=== PATIENT | male | born 1935 | race African-American/Black ===

== ENCOUNTER 2016-09-08 15:02 | Emergency (ER) ==
[2016-09-08 15:42] LABS: URINE CULTURE PL NEEDED? NO; URINE SOURCE CLEAN CATCH
[2016-09-08 15:48] LABS: BILIRUBIN URINE NEGATIVE (NEGATIVE); BLOOD URINE NEGATIVE (NEGATIVE); CLARITY SL. CLOUDY (CLEAR); COLOR YELLOW; GLUCOSE URINE NEGATIVE (NEGATIVE); LEUKOCYTES URINE NEGATIVE (NEGATIVE); NITRITE URINE NEGATIVE (NEGATIVE); PROTEIN URINE NEGATIVE (NEGATIVE); UROBILINOGEN URINE NORMAL
[2016-09-08 16:40] LABS: URINE RBC <10 /HPF (<10); URINE WBC <10 /HPF (<10)
[2016-09-08 17:43] VITALS: BP 198/96
[2016-09-08] MEDS ORDERED: NORFLEX IM ONE (18:59)
[2016-09-08] MEDS ORDERED: TORADOL IM ONE (18:59)
--- NOTE | 2016-09-08 19:05 | PROVIDER DOCUMENTATION ---
HPI-Musculoskeletal Pain/Inj - GENERAL Chief Complaint: Back Pain Stated Complaint: FLANK PAIN Time Seen by Provider: 09/08/16 18:51 Source: patient - HX OF PRESENT ILLNESS-MUSKULOSKELTAL Nature of Presenting Problem: 81 YOM PRESENTS TO ED WITH C/O PT STATES HE HAD PULLED HIS BACK SEVERAL YEARS AGO AND NOW FROM TIME TO TIME HE HAS RECURRENT. PT STATES LEFT LOWER BACK TENDERNESS WITH SHOOTING PAINS DOWN LEFT LEG. Quality of Pain: reports: sharp Severity in ED: mild Onset/Duration: 3 days ago Timing: still present Modifying Factors: improves with: nothing Any recent injury?: No Locality of Occurance: Home Similar Symptoms Previously?: No Recently seen or treated by another doctor?: No - FALL INJURY Location of Pain/Injury: reports: back (LEFT LOWER) Pain Radiation: reports: legs (upper) (LT LEG) Review of Systems - Adult - REVIEW OF SYSTEMS - ADULT Constitutional: denies: chills, fever Eyes: reports: no symptoms reported Ears, Nose, Mouth & Throat: reports: no symptoms reported Cardiovascular: denies: chest pain, palpitations, syncope Respiratory: denies: cough, shortness of breath, wheezing Gastrointestinal: denies: abdominal pain, diarrhea, nausea, vomiting Genitourinary: reports: no symptoms reported Musculoskeletal: reports: back pain (LT LOWER). denies: neck pain Integumentary: reports: no symptoms reported Neurological: denies: dizziness/vertigo, headache/migraines, syncope Psychiatric: reports: no symptoms reported Endocrine: reports: no symptoms reported Hematologic/Lymphatic: reports: no symptoms reported Allergic/Immunologic: reports: no symptoms reported All Other Systems: Reviewed and Negative Past History - Adult - PAST MEDICAL HISTORY-ADULT Review of Records: reports: Nursing Assessment Review, Medications Reviewed Cardiovascular: reports: HTN Endocrine/Immune: reports: Diabetes - PRIOR SURGERIES/PROCEDURES Surgical/Procedure History: reports: hernia repair - IMMUNIZATION STATUS Childhood Immunizations: See Nurse Assessment Flu Vaccine: See Nurse Assessment - SOCIAL HISTORY Smoking: denies Substance Use: denies Alcohol Use Frequency: never Living Situation: family Physical Exam-Injury Related - Physical Exam-Injury Related General Appearance: alert, moderate distress Eyes: PERRL/EOMI, pink conjunctivae Head, Ears, Nose, Mouth & Throat: normocephalic/atraumatic, moist mucous membranes Neck: non-tender, full range of motion, supple Respiratory: chest non-tender, lungs clear, normal breath sounds Cardiovascular: normal peripheral pulses, regular rate, rhythm Abdominal Exam: normal bowel sounds, non tender, soft Lymphatic: no adenopathy Back Exam: normal inspection, other (LT SIDE LOWER BACK PAIN) Extremity: normal range of motion, tenderness, other (SHOOTING PAIN DOWN LEFT LEG) Integumentary: normal color, warm/dry Neurologic: grossly normal Psych/Mental Status: oriented x 3 - Glascow Coma Score Best Eye Response (Ese): (4) open spontaneously Best Verbal Response (Gilbert): (5) oriented Best Motor Response (Ese): (6) obeys commands Departure - Departure Time of Disposition Order: 19:00 DIAGNOSIS: Low back sprain Qualifiers: Encounter type: subsequent encounter Qualified Code(s): S33.9XXD - Sprain of unspecified parts of lumbar spine and pelvis, subsequent encounter Disposition: HOME 01 Certified Medical Emergency: Emergent Condition: Stable Additional Instructions: ED Follow Up Instructions: You have been treated by a care provider in the Emergency Department. These instructions are being provided to you so you can have an understanding of how to care for yourself upon discharge. Upon discharge from the Emergency Department, you are responsible for making arrangements for follow-up care by a physician of your choice. Take all prescribed medications as directed. Return to the Emergency Department immediately for any new or worsening symptoms. You may call the Physician Referral phone number at [phone] to obtain a list of Physicians who are taking new patients. Prescriptions: Hydrocodone/Acetaminophen [Shanks 5-325 Tablet] 1 each PO Q4-6H PRN PRN #12 tablet PRN Reason: Pain Ketorolac [Toradol] 10 mg PO Q6H PRN PRN #15 tablet PRN Reason: Pain Referrals: Ravi Chadwick MD [Primary Care Provider] - Attestation - Scribe Verification/Attestation Scribe:: Jaxson Hobson Acting as Scribe for:: Shin Gan Scribe documention review:: This chart was documented by a scribe and accurately reflects the service the provider performed and the decisions made by the provider.
== END 2016-09-08 19:40 | disposition home or self-care (01) ==
LOC: P.ED 15:02
DX: S33.5XXA Sprain of ligaments of lumbar spine, initial encounter (principal); M54.5 Low back pain; M79.652 Pain in left thigh; I10 Essential (primary) hypertension; E11.8 Type 2 diabetes mellitus with unspecified complications; Z79.899 Other long term (current) drug therapy
CPT/HCPCS: 81001; 96372; J1885; J2360